=== PATIENT | female | born 1995 | race Caucasian/White ===

== ENCOUNTER 2017-07-14 15:52 | Inpatient (IN) | payer OTHER, MEDICAID, SELFPAY ==
[2017-07-14 16:26] VITALS: BMI 29.8
[2017-07-14 16:30] VITALS: BP 115/76; PULSE 76; RESP 16; TEMP 36.7; O2SAT 100
[2017-07-14 16:34] VITALS: BMI 29.8
[2017-07-14 17:11] VITALS: BP 115/76; PULSE 76; RESP 16; TEMP 36.7
[2017-07-14] MEDS: Buprenorphine HCl 2 MG TAB.SUBL SL (17:13)
[2017-07-14] MEDS: Methocarbamol 750 MG Tablet PO (17:13)
[2017-07-14] MEDS: cloNIDine HCl 0.1 MG Tablet PO ×2 (17:13→22:04)
[2017-07-14] MEDS: Ibuprofen 600 MG Tablet PO (17:13)
[2017-07-14 17:33] LABS: Color, Urine Yellow (Yellow); Glucose, Dipstick Normal (Normal); Ketone-Dipstick 50 mg/dl (Negative); Leukocyte Esterase-Dipstick 500 /ul (Negative); Nitrite-Dipstick Positive (Negative); Occult Blood-Urine 25 /ul (Negative); Protein-Dipstick 30 mg/dl (Negative); Urine Bilirubin Dipstick Negative (Negative); Urine Clarity Cloudy (Clear); Urine Urobilinogen Normal (Normal)
[2017-07-14 17:45] LABS: Red Blood Cells-Urine 0-5 SEEN /hpf (0-5); White Blood Cells 50-100 SEEN /hpf (0-5)
[2017-07-14 17:46] LABS: Bacteria 1+ /hpf (None Seen); Mucous, Urine 3+ /hpf (<or=2+); Squamous Epithelial Cells - UA 0-5 SEEN /hpf (5-10)
--- NOTE | 2017-07-14 17:52 | PCM.HP.STD ---
Problem List (1) Opiate withdrawal Status: Acute (2) Nicotine abuse Status: Chronic (3) PTSD (post-traumatic stress disorder) Status: Chronic (4) Bipolar 1 disorder Status: Chronic History of Present Illness Date of Admission: 07/14/17 Chief Complaint: heroin withdrawal The patient is a 22 year old F with a hx of PTSD, bipolar disorder, and nicotine abuse, who presents to the hospital through the medical stabilization program with acute heroin withdrawal. She has been an addict for about 2 years and has been through detox twice this year so far. She was in [facility] in march and then [place] already in June. She last used 2 nights ago. She snorted about 1/2 gram of heroin. She usually snorts 1/2-1 gram several times per day. She Does not inject. She denies other drug use. She does not drink. She smokes 1/2 ppd cigarettes. She plans to pursue [facility] for rehab. Her current withdrawal symptoms include nausea with vomiting, sweats, tremor, and leg and back pain. [] Past Medical History Past Medical History (Chronic Problems): Chronic Problems Nicotine abuse (Chronic) PTSD (post-traumatic stress disorder) (Chronic) Bipolar 1 disorder (Chronic) Allergies No Known Allergies Allergy (Verified 07/14/17 16:14) Home Medications: Ambulatory Orders Medication Instructions Recorded Lamotrigine [Lamictal] 100 mg PO DAILY 07/14/17 Quetiapine Fumarate [Seroquel] 100 mg PO PRN PRN 07/14/17 Quetiapine Fumarate [Seroquel] 300 mg PO DAILY 07/14/17 Surgical History: adenoidectomy, tonsillectomy, - - c section Psychiatric History: Anxiety, Bipolar, Depression, Post traumatic 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 Denies: Chills, Fever, Weight Change HEENT: Denies: Head Aches, Sinus Congestion, Sinus Drainage Cardiovascular: Denies: Chest Pain, Palpitations Respiratory: Denies: Cough, Shortness of breath at rest, Sputum production Gastrointestinal: Reports: Nausea. Denies: Abdominal Pain, Vomiting Genitourinary: Denies: Dysuria Musculoskeletal: Reports: - - back and leg pain. Denies: Joint Pain, Joint Tenderness Skin: Denies: Rash, Wounds Neurological: Denies: Numbness, Tingling, Focal weakness Psychiatric: Denies: Anxiety, Depression, Homicidal Ideations, Suicidal Ideations Hematologic/ Lymphatic: Denies: Easy Bruising, Easy Bleeding VTE Information - Inpt Only VTE Present on Admission: No VTE Mechan Device Prophylaxis: None VTE Pharm Prophylaxis ordered?: No Reason prophylaxis not ordered:: Procedure Not Indicated Patient Problems: Active and Suspected Problems Opiate withdrawal (Acute) - Physical Exam General: Alert, Oriented x3, Cooperative HEENT: Atraumatic, PERRLA, EOMI, Normocephalic Neck: Supple, No JVD, Negative Carotid Bruits Lungs: Clear to auscultation, Normal air movement Cardiovascular: Regular rate, No murmurs Abdomen: Bowel Sounds Present, Soft, Non Tender Extremities: No edema, Capillary Refill Less than 3 Seconds Skin: No rashes, No breakdown Musculoskeletal: No Tenderness to Palpation of Joints or Extremities Neurological: Cranial nerves II-XII grossly intact Psych/Mental Status: Normal Affect, Appropriate Vital Signs Temp Pulse Resp BP Pulse Ox 98.1 F 76 16 115/76 100 07/14/17 17:11 07/14/17 17:11 07/14/17 17:11 07/14/17 17:11 07/14/17 16:30 Oxygen Delivery Method Room Air Weight: 66.996 kg Body Mass Index (BMI) 29.8 Laboratory Tests Past 24 Hrs 07/14/17 16:55 Urine Color Yellow Urine Clarity Cloudy Urine pH 6.0 Ur Specific [place] 1.020 Urine Protein 30 H Urine Glucose (UA) Normal Urine Ketones 50 H Urine Occult Blood 25 H Urine Nitrite Positive H Urine Bilirubin Negative Urine Urobilinogen Normal Ur Leukocyte Esterase 500 H Urine RBC 0-5 SEEN Urine WBC 50-100 SEEN Ur Squamous Epith Cells 0-5 SEEN Urine Bacteria 1+ Urine Mucus 3+ Assessment/Plan Active and Suspected Problems Opiate withdrawal (Acute) 1. Acute heroin withdrawal - uses 0.5-1 gram nasally several times per day. No IV use. Current withdrawal sx: shaky, sweats, nausea, vomx1, leg and back pain. Begin withdrawal protocol with subutex. 2. Bipolar/PTSD - Seroquel, Lamictal 3. Nicotine abuse - 1/2 ppd. Patch ordered Medical stabilization day 1 of 4 DC planning: [facility] This patient was seen by Yeison Tellez PA-C under the supervision of Doctor Castro .
--- NOTE | 2017-07-14 18:01 | HP.PCM_ITS ---
Problem List (1) Opiate withdrawal Status: Acute (2) Nicotine abuse Status: Chronic (3) PTSD (post-traumatic stress disorder) Status: Chronic (4) Bipolar 1 disorder Status: Chronic History of Present Illness Date of Admission: 07/14/17 Chief Complaint: heroin withdrawal The patient is a 22 year old F with a hx of PTSD, bipolar disorder, and nicotine abuse, who presents to the hospital through the medical stabilization program with acute heroin withdrawal. She has been an addict for about 2 years and has been through detox twice this year so far. She was in [facility] in march and then [place] already in June. She last used 2 nights ago. She snorted about 1/2 gram of heroin. She usually snorts 1/2-1 gram several times per day. She Does not inject. She denies other drug use. She does not drink. She smokes 1/2 ppd cigarettes. She plans to pursue [facility] for rehab. Her current withdrawal symptoms include nausea with vomiting, sweats, tremor, and leg and back pain. 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 Denies: Chills, Fever, Weight Change HEENT: Denies: Head Aches, Sinus Congestion, Sinus Drainage Cardiovascular: Denies: Chest Pain, Palpitations Respiratory: Denies: Cough, Shortness of breath at rest, Sputum production Gastrointestinal: Reports: Nausea. Denies: Abdominal Pain, Vomiting Genitourinary: Denies: Dysuria Musculoskeletal: Reports: - - back and leg pain. Denies: Joint Pain, Joint Tenderness Skin: Denies: Rash, Wounds Neurological: Denies: Numbness, Tingling, Focal weakness Psychiatric: Denies: Anxiety, Depression, Homicidal Ideations, Suicidal Ideations Hematologic/ Lymphatic: Denies: Easy Bruising, Easy Bleeding VTE Information - Inpt Only VTE Present on Admission: No VTE Mechan Device Prophylaxis: None VTE Pharm Prophylaxis ordered?: No Reason prophylaxis not ordered:: Procedure Not Indicated Patient Problems: Active and Suspected Problems Opiate withdrawal (Acute) - Physical Exam General: Alert, Oriented x3, Cooperative HEENT: Atraumatic, PERRLA, EOMI, Normocephalic Neck: Supple, No JVD, Negative Carotid Bruits Lungs: Clear to auscultation, Normal air movement Cardiovascular: Regular rate, No murmurs Abdomen: Bowel Sounds Present, Soft, Non Tender Extremities: No edema, Capillary Refill Less than 3 Seconds Skin: No rashes, No breakdown Musculoskeletal: No Tenderness to Palpation of Joints or Extremities Neurological: Cranial nerves II-XII grossly intact Psych/Mental Status: Normal Affect, Appropriate Vital Signs Temp Pulse Resp BP Pulse Ox 98.1 F 76 16 115/76 100 07/14/17 17:11 07/14/17 17:11 07/14/17 17:11 07/14/17 17:11 07/14/17 16:30 Oxygen Delivery Method Room Air Weight: 66.996 kg Body Mass Index (BMI) 29.8 Laboratory Tests Past 24 Hrs 07/14/17 16:55 Urine Color Yellow Urine Clarity Cloudy Urine pH 6.0 Ur Specific [place] 1.020 Urine Protein 30 H Urine Glucose (UA) Normal Urine Ketones 50 H Urine Occult Blood 25 H Urine Nitrite Positive H Urine Bilirubin Negative Urine Urobilinogen Normal Ur Leukocyte Esterase 500 H Urine RBC 0-5 SEEN Urine WBC 50-100 SEEN Ur Squamous Epith Cells 0-5 SEEN Urine Bacteria 1+ Urine Mucus 3+ Assessment/Plan Active and Suspected Problems Opiate withdrawal (Acute) 1. Acute heroin withdrawal - uses 0.5-1 gram nasally several times per day. No IV use. Current withdrawal sx: shaky, sweats, nausea, vomx1, leg and back pain. Begin withdrawal protocol with subutex. 2. Bipolar/PTSD - Seroquel, Lamictal 3. Nicotine abuse - 1/2 ppd. Patch ordered Medical stabilization day 1 of 4 DC planning: [facility] This patient was seen by Yeison Tellez PA-C under the supervision of Doctor Castro .
[2017-07-14 21:00] VITALS: BP 100/53; PULSE 99; RESP 16; TEMP 36.8; O2SAT 97
[2017-07-14 21:52] LABS: Pregnancy, Serum, hCG Quali. NEGATIVE Negative (0-9 Nonpreg)
[2017-07-14 22:00] VITALS: BP 100/53; PULSE 99; RESP 16; TEMP 36.8
[2017-07-14] MEDS: chlordiazePOXIDE 25 MG Capsule PO (22:05)
[2017-07-14] MEDS: QUEtiapine 100 MG Tablet 300 MG PO (22:05)
[2017-07-15] VITALS (10 sets, daily range): BP systolic 91–104; BP diastolic 49–61; PULSE 58–88; RESP 16–18; TEMP 36.6–36.9; O2SAT 98–99
[2017-07-15] MEDS: Buprenorphine HCl 2 MG TAB.SUBL SL ×3 (01:19→17:40)
--- NOTE | 2017-07-15 07:50 | PN_ITS ---
Patient Problems: Active and Suspected Problems Opiate withdrawal (Acute) Subjective: Patient was seen and examined. Complains of cold sweats and nausea. Able to eat a bit of Pringles and prateek naa this morning. Denies any fever or chills. Admitted last night and the [facility]. Vitals/I&O's: Vital Signs Temp Pulse Resp BP Pulse Ox 97.9 F 68 16 98/53 L 98 07/15/17 06:44 07/15/17 06:44 07/15/17 06:44 07/15/17 06:44 07/15/17 06:44 Oxygen Delivery Method Room Air Weight: 66.996 kg Body Mass Index (BMI) 29.8 Intake and Output for Last 24 Hours 07/13/17 07/14/17 07/15/17 23:59 23:59 23:59 Intake Total 350 / 350 740 / 740 Output Total 200 / 200 Balance 150 / 150 740 / 740 General: Alert, Oriented x3, Cooperative HEENT: Atraumatic, PERRLA, EOMI, Normocephalic Oral: Moist Mucosa Neck: Supple Lungs: Clear to auscultation, Normal air movement Cardiovascular: Regular rate, Regular Rhythm, Normal S1, Normal S2, No murmurs Abdomen: Bowel Sounds Present, Soft, Non Tender, Non-Distended, No Hepato- splenomegaly Extremities: No edema Skin: No rashes, No breakdown Musculoskeletal: No Tenderness to Palpation of Joints or Extremities Lymphatic: No Cervical, Supraclavicular, or Inguinal Adenopathy Neurological: Cranial nerves II-XII grossly intact Psych/Mental Status: Normal Affect, Appropriate Laboratory Results 07/14/17 16:55: Urine Color Yellow, Urine Clarity Cloudy, Urine pH 6.0, Ur Specific [place] 1.020, Urine Protein 30 H, Urine Glucose (UA) Normal, Urine Ketones 50 H, Urine Occult Blood 25 H, Urine Nitrite Positive H, Urine Bilirubin Negative, Urine Urobilinogen Normal, Ur Leukocyte Esterase 500 H, Urine RBC 0-5 SEEN, Urine WBC 50-100 SEEN, Ur Squamous Epith Cells 0-5 SEEN, Urine Bacteria 1+, Urine Mucus 3+ 07/14/17 20:30: Serum , Qual NEGATIVE Current Medications Buprenorphine HCl (Buprenorphine Hcl) 4 mg SL Q8H FLORY PRN Reason: Taper Stop: 07/17/17 21:59 Last Admin: 07/15/17 01:19 Dose: 4 mg Chlordiazepoxide (Librium) 25 mg PO Q6H PRN PRN PRN Reason: Anxiety Score 2-3/3 Last Admin: 07/14/17 22:05 Dose: 25 mg Clonidine (Catapres) 0.1 mg PO Q2H PRN PRN PRN Reason: Hot/Cold Sweats or Anxiety Last Admin: 07/14/17 22:04 Dose: 0.1 mg Ibuprofen (Motrin) 600 mg PO Q8H PRN PRN PRN Reason: Mild-Moderate Pain (1-5/10) Last Admin: 07/14/17 17:13 Dose: 600 mg Lamotrigine (Lamictal) 100 mg PO DAILY [facility] Methocarbamol (Methocarbamol) 750 mg PO Q6H PRN PRN PRN Reason: Muscle Aches Last Admin: 07/14/17 17:13 Dose: 750 mg Nicotine (Nicoderm Cq (Pbkc)) 21 mg TRANSDERM. DAILY [facility] Last Admin: 07/14/17 18:56 Dose: 21 mg Ondansetron HCl (Zofran) 8 mg PO Q8H PRN PRN PRN Reason: NAUSEA Quetiapine Fumarate (Seroquel) 300 mg PO QHS [facility] Last Admin: 07/14/17 22:05 Dose: 300 mg Quetiapine Fumarate (Seroquel) 100 mg PO DAILY@0100 PRN PRN Reason: ANXIETY/SLEEP Sodium Chloride () 5 - 30 ml IV UD PRN PRN Reason: SALINE FLUSH Medical Necessity - Tobacco Use Smoking Status: Light Smoker (<10/day) Tobacco Use: Cigarettes Assessment/Plan Active and Suspected Problems Opiate withdrawal (Acute) 22-year-old female with past medical history of PTSD, bipolar disorder, nicotine disorder, heroin use disorder ongoing for more than 2 years who comes in for medical stabilization under the [facility] protocol. 1. Acute heroin withdrawal, stable vitals, progressing well, continue per protocol 2. Bipolar/PTSD, stable, on Seroquel, Lamictal 3. Nicotine abuse - on replacement 4. DVT PPx - early ambulation Code Visit Inpatient E&M: 44591 Subs Hosp L2
[2017-07-15] MEDS: Methocarbamol 750 MG Tablet PO ×2 (08:24→19:56)
[2017-07-15] MEDS: lamoTRIgine 100 MG Tablet PO (10:30)
[2017-07-15] MEDS: chlordiazePOXIDE 25 MG Capsule PO (19:56)
[2017-07-15] MEDS: cloNIDine HCl 0.1 MG Tablet PO (19:56)
[2017-07-15] MEDS: QUEtiapine 100 MG Tablet 300 MG PO (22:05)
[2017-07-15] MEDS: Ondansetron 8 MG Tablet PO (22:21)
[2017-07-16 02:49] VITALS: BP 97/50; PULSE 73; RESP 14; TEMP 36.6
[2017-07-16] MEDS: Buprenorphine HCl 2 MG TAB.SUBL SL ×3 (02:53→21:11)
--- NOTE | 2017-07-16 08:11 | PCM.PN.HOSP ---
Patient Problems: Active and Suspected Problems Opiate withdrawal (Acute) Subjective: Patient was seen and examined. No new complains. She is feeling better. Her withdrawal symptoms are better. Denies chest pain, dizziness, palpitations or fever. Objective: Physical exam: General: Alert, Oriented x3, Cooperative HEENT: Atraumatic, PERRLA, EOMI, Normocephalic Oral: Moist Mucosa Neck: Supple Lungs: Clear to auscultation, Normal air movement Cardiovascular: Regular rate, Regular Rhythm, Normal S1, Normal S2, No murmurs Abdomen: Bowel Sounds Present, Soft, Non Tender, Non-Distended, No Hepato-splenomegaly Extremities: No edema Skin: No rashes, No breakdown Musculoskeletal: No Tenderness to Palpation of Joints or Extremities Lymphatic: No Cervical, Supraclavicular, or Inguinal Adenopathy Neurological: Cranial nerves II-XII grossly intact Psych/Mental Status: Normal Affect, Appropriate Vitals/I&O's: Vital Signs Temp Pulse Resp BP Pulse Ox 97.9 F 73 14 97/50 L 99 07/16/17 02:49 07/16/17 02:49 07/16/17 02:49 07/16/17 02:49 07/15/17 19:58 Oxygen Delivery Method Room Air Weight: 66.996 kg Body Mass Index (BMI) 29.8 Intake and Output for Last 24 Hours 07/14/17 07/15/17 07/16/17 23:59 23:59 23:59 Intake Total 350 / 350 3200 / 3200 Output Total 200 / 200 Balance 150 / 150 3200 / 3200 Current Medications Buprenorphine HCl (Buprenorphine Hcl) 2 mg SL Q8H FLORY PRN Reason: Taper Stop: 07/17/17 21:59 Last Admin: 07/16/17 02:53 Dose: 2 mg Chlordiazepoxide (Librium) 25 mg PO Q6H PRN PRN PRN Reason: Anxiety Score 2-3/3 Last Admin: 07/15/17 19:56 Dose: 25 mg Clonidine (Catapres) 0.1 mg PO Q2H PRN PRN PRN Reason: Hot/Cold Sweats or Anxiety Last Admin: 07/15/17 19:56 Dose: 0.1 mg Ibuprofen (Motrin) 600 mg PO Q8H PRN PRN PRN Reason: Mild-Moderate Pain (1-5/10) Last Admin: 07/14/17 17:13 Dose: 600 mg Lamotrigine (Lamictal) 100 mg PO DAILY [facility] Last Admin: 07/15/17 10:30 Dose: 100 mg Methocarbamol (Methocarbamol) 750 mg PO Q6H PRN PRN PRN Reason: Muscle Aches Last Admin: 07/15/17 19:56 Dose: 750 mg Nicotine (Nicoderm Cq (Pbkc)) 21 mg TRANSDERM. DAILY [facility] Last Admin: 07/15/17 10:30 Dose: 21 mg Ondansetron HCl (Zofran) 8 mg PO Q8H PRN PRN PRN Reason: NAUSEA Last Admin: 07/15/17 22:21 Dose: 8 mg Quetiapine Fumarate (Seroquel) 300 mg PO QHS [facility] Last Admin: 07/15/17 22:05 Dose: 300 mg Quetiapine Fumarate (Seroquel) 100 mg PO DAILY@0100 PRN PRN Reason: ANXIETY/SLEEP Sodium Chloride () 5 - 30 ml IV UD PRN PRN Reason: SALINE FLUSH Medical Necessity - Tobacco Use Smoking Status: Light Smoker (<10/day) Tobacco Use: Cigarettes Assessment/Plan Active and Suspected Problems Opiate withdrawal (Acute) 22-year-old female with past medical history of PTSD, bipolar disorder, nicotine disorder, heroin use disorder ongoing for more than 2 years who comes in for medical stabilization under the [facility] protocol. 1. Acute heroin withdrawal, continues to improve, will continue per protocol 2. Bipolar/PTSD, stable, on Seroquel, Lamictal 3. Nicotine abuse - on replacement 4. DVT PPx - early ambulation Code Visit Inpatient E&M: 37606 Subs Hosp L2
--- NOTE | 2017-07-16 08:14 | PN_ITS ---
Patient Problems: Active and Suspected Problems Opiate withdrawal (Acute) Subjective: Patient was seen and examined. No new complains. She is feeling better. Her withdrawal symptoms are better. Denies chest pain, dizziness, palpitations or fever. Objective: Physical exam: General: Alert, Oriented x3, Cooperative HEENT: Atraumatic, PERRLA, EOMI, Normocephalic Oral: Moist Mucosa Neck: Supple Lungs: Clear to auscultation, Normal air movement Cardiovascular: Regular rate, Regular Rhythm, Normal S1, Normal S2, No murmurs Abdomen: Bowel Sounds Present, Soft, Non Tender, Non-Distended, No Hepato- splenomegaly Extremities: No edema Skin: No rashes, No breakdown Musculoskeletal: No Tenderness to Palpation of Joints or Extremities Lymphatic: No Cervical, Supraclavicular, or Inguinal Adenopathy Neurological: Cranial nerves II-XII grossly intact Psych/Mental Status: Normal Affect, Appropriate Vitals/I&O's: Vital Signs Temp Pulse Resp BP Pulse Ox 97.9 F 73 14 97/50 L 99 07/16/17 02:49 07/16/17 02:49 07/16/17 02:49 07/16/17 02:49 07/15/17 19:58 Oxygen Delivery Method Room Air Weight: 66.996 kg Body Mass Index (BMI) 29.8 Intake and Output for Last 24 Hours 07/14/17 07/15/17 07/16/17 23:59 23:59 23:59 Intake Total 350 / 350 3200 / 3200 Output Total 200 / 200 Balance 150 / 150 3200 / 3200 Current Medications Buprenorphine HCl (Buprenorphine Hcl) 2 mg SL Q8H FLORY PRN Reason: Taper Stop: 07/17/17 21:59 Last Admin: 07/16/17 02:53 Dose: 2 mg Chlordiazepoxide (Librium) 25 mg PO Q6H PRN PRN PRN Reason: Anxiety Score 2-3/3 Last Admin: 07/15/17 19:56 Dose: 25 mg Clonidine (Catapres) 0.1 mg PO Q2H PRN PRN PRN Reason: Hot/Cold Sweats or Anxiety Last Admin: 07/15/17 19:56 Dose: 0.1 mg Ibuprofen (Motrin) 600 mg PO Q8H PRN PRN PRN Reason: Mild-Moderate Pain (1-5/10) Last Admin: 07/14/17 17:13 Dose: 600 mg Lamotrigine (Lamictal) 100 mg PO DAILY [facility] Last Admin: 07/15/17 10:30 Dose: 100 mg Methocarbamol (Methocarbamol) 750 mg PO Q6H PRN PRN PRN Reason: Muscle Aches Last Admin: 07/15/17 19:56 Dose: 750 mg Nicotine (Nicoderm Cq (Pbkc)) 21 mg TRANSDERM. DAILY [facility] Last Admin: 07/15/17 10:30 Dose: 21 mg Ondansetron HCl (Zofran) 8 mg PO Q8H PRN PRN PRN Reason: NAUSEA Last Admin: 07/15/17 22:21 Dose: 8 mg Quetiapine Fumarate (Seroquel) 300 mg PO QHS [facility] Last Admin: 07/15/17 22:05 Dose: 300 mg Quetiapine Fumarate (Seroquel) 100 mg PO DAILY@0100 PRN PRN Reason: ANXIETY/SLEEP Sodium Chloride () 5 - 30 ml IV UD PRN PRN Reason: SALINE FLUSH Medical Necessity - Tobacco Use Smoking Status: Light Smoker (<10/day) Tobacco Use: Cigarettes Assessment/Plan Active and Suspected Problems Opiate withdrawal (Acute) 22-year-old female with past medical history of PTSD, bipolar disorder, nicotine disorder, heroin use disorder ongoing for more than 2 years who comes in for medical stabilization under the [facility] protocol. 1. Acute heroin withdrawal, continues to improve, will continue per protocol 2. Bipolar/PTSD, stable, on Seroquel, Lamictal 3. Nicotine abuse - on replacement 4. DVT PPx - early ambulation Code Visit Inpatient E&M: 33094 Subs Hosp L2
[2017-07-16 09:55] VITALS: BP 90/49; PULSE 91; RESP 16; TEMP 36.7
[2017-07-16 09:58] VITALS: PULSE 99
[2017-07-16] MEDS: Methocarbamol 750 MG Tablet PO (10:07)
[2017-07-16] MEDS: lamoTRIgine 100 MG Tablet PO (10:08)
[2017-07-16 14:00] VITALS: BP 105/70; PULSE 95; RESP 18; TEMP 36.9
--- NOTE | 2017-07-16 14:00 | CHAPLAIN ---
Type of Pastoral Visit _x__ Initial Visit ___ Follow-up Visit ___ On-call Visit ___ General Patient Visit ___ Spiritual Assessment ___ Family Conference ___ Bereavement ___ Rapid Response ___ Code Blue ___ Other (describe below) Pastoral Care Referral From _x__ Patient ___ Family ___ Nurse ___ Physician ___ Glass Cut Off Tender ___ Payroll Machine Operator ___ Other (describe below) Sacrament/Intervention _x__ Active listening ___ Anointing ___ Episcopal ___ Bereavement ___ Communion ___ Suzy exploration ___ ___ Life review _x__ Prayer ___ Reconciliation ___ Sacrament of Sick _x__ Supportive presence ___ Wedding ___ Other (describe below) Pastoral Comments patient said it was ok to visit with her; pt says that she is not feeling much better yet; pt expresses happiness to have been accepted to [facility] for an 8 month program; pt states, I have to get better for my boys; pt has twins about 2 years old; pt says that she has family support; pt welcomes a prayer and the visit
[2017-07-16] MEDS: Ibuprofen 600 MG Tablet PO (14:56)
[2017-07-16 18:00] VITALS: BP 111/67; PULSE 80; RESP 18; TEMP 36.8
[2017-07-16] MEDS: chlordiazePOXIDE 25 MG Capsule PO (18:23)
[2017-07-16 21:05] VITALS: BP 113/68; PULSE 74; RESP 18; TEMP 36.7
[2017-07-16] MEDS: QUEtiapine 100 MG Tablet 300 MG PO (21:11)
[2017-07-16] MEDS: cloNIDine HCl 0.1 MG Tablet PO (21:11)
--- NOTE | 2017-07-17 09:27 | PCM.DC ---
- Discharge Diagnoses Current Active Problems: Current Active and Chronic Problems Opiate withdrawal (Acute) Nicotine abuse (Chronic) PTSD (post-traumatic stress disorder) (Chronic) Bipolar 1 disorder (Chronic) You will use the following diet at home:: No restrictions Your food should be the consistency of: Regular Your liquids should be the consistency of: Regular/Thin Discharge Activity: Return to Normal Activity Weight Bearing Status: Full weight bearing Allergies/Adverse Reactions: Allergies No Known Allergies Allergy (Verified 07/14/17 16:14) Medications to take at Discharge Lamotrigine [Lamictal] 100 mg PO DAILY 07/14/17 Quetiapine Fumarate [Seroquel] 100 mg PO PRN PRN 07/14/17 Quetiapine Fumarate [Seroquel] 300 mg PO DAILY 07/14/17 Lamotrigine [Lamictal] 100 mg PO DAILY tablet 07/17/17 Quetiapine Fumarate [Seroquel] 100 mg PO DAILY@0100 PRN tablet 07/17/17 Quetiapine Fumarate [Seroquel] 300 mg PO QHS tablet 07/17/17 Primary Care Physician: Care Physician,No Primary [Primary Care Provider] - Please follow up with your Primary Care Physician in: in 3 weeks
--- NOTE | 2017-07-17 09:30 | DS.PCM_ITS ---
Discharge Date and Diagnosis - Problem List Patient Problems: Active and Suspected Problems Opiate withdrawal (Acute) Date of Admission: 07/14/17 Date of Discharge: 07/17/17 - Primary Discharge Diagnosis Active and Suspected Problems #1 Opiate withdrawal (Acute)- heroin #2 Heroin abuse #3 bipolar disorder #4 PTSD - Secondary Discharge Diagnosis Chronic Problems Nicotine abuse (Chronic) PTSD (post-traumatic stress disorder) (Chronic) Bipolar 1 disorder (Chronic) Hospital Course and Treatment Operations: None Procedures: None Summary of Care Provided: The patient is a 22 year old F who was admitted directly into the medical stabilization program at [facility] due to acute opiate withdrawal from heroin. Patient's other medical problems include bipolar disorder and PTSD. Patient was maintained on her home medications and medications were given per medical stabilization protocol. Patient had no untoward events while hospitalized, on 07/17/17, patient was seen and examined and felt to be in stable condition for discharge. Follow-up was arranged by [facility] program. Discharge Activity: Return to Normal Activity Weight Bearing Status: Full weight bearing Home Medications: Medications to take at Discharge Lamotrigine [Lamictal] 100 mg PO DAILY 07/14/17 Quetiapine Fumarate [Seroquel] 100 mg PO PRN PRN 07/14/17 Quetiapine Fumarate [Seroquel] 300 mg PO DAILY 07/14/17 Lamotrigine [Lamictal] 100 mg PO DAILY tablet 07/17/17 Quetiapine Fumarate [Seroquel] 100 mg PO DAILY@0100 PRN tablet 07/17/17 Quetiapine Fumarate [Seroquel] 300 mg PO QHS tablet 07/17/17 Primary Care Physician: Care Physician,No Primary [Primary Care Provider] - Please follow up with your Primary Care Physician in: in 3 weeks Disposition: Home Minutes spent on discharge:: 32 Patient Condition:: Stable Medical Necessity - Tobacco Use Smoking Status: Light Smoker (<10/day) Tobacco Use: Cigarettes Meaningful Use Info Meaningful Use Diagnoses (Choose all that apply): None applicable Code Visit Inpatient E&M: 01165 Disch Hosp
[2017-07-17 10:12] VITALS: BP 105/54; PULSE 70; RESP 16; TEMP 36.8; O2SAT 98
[2017-07-17 10:15] VITALS: RESP 16
[2017-07-17] MEDS: lamoTRIgine 100 MG Tablet PO (10:16)
[2017-07-17] MEDS: chlordiazePOXIDE 25 MG Capsule PO (10:19)
[2017-07-17] MEDS: Buprenorphine HCl 2 MG TAB.SUBL SL (10:19)
== END 2017-07-17 12:27 | disposition home or self-care (01) | DRG 897 ==
PROVIDERS: Admitting Provider Internal Medicine; Visit Provider Internal Medicine
DX: F11.23 Opioid dependence with withdrawal (principal); F31.9 Bipolar disorder, unspecified; F41.9 Anxiety disorder, unspecified; F43.10 Post-traumatic stress disorder, unspecified; F17.210 Nicotine dependence, cigarettes, uncomplicated; Z79.899 Other long term (current) drug therapy
CPT/HCPCS: 36415; 81001; 84703; 97802; 99406